=== PATIENT | female | born 1960 | race African-American/Black ===

== ENCOUNTER → 2018-06-14 | Outpatient (RCR) | payer MEDICARE | END | disposition home or self-care (01) | LOC: MKS.ESL.OT → WSST 03-17 11:15 → MKS.ESL.PT 03-22 10:00 → WSST 03-31 12:45 → MKS.ESL.OT 04-06 16:15 → WSST 04-14 12:45 → MKS.ESL.PT 04-26 15:30 → WSST 04-28 14:15 → MKS.ESL.OT 05-12 10:30 → MKS.ESL.PT 05-24 12:45 → WSST 05-26 12:45 → MKS.ESL.OT 06-07 13:30 | DX: I69.390 Apraxia following cerebral infarction (principal); I69.320 Aphasia following cerebral infarction; I69.322 Dysarthria following cerebral infarction; I69.351 Hemiplegia and hemiparesis following cerebral infarction affecting right dominant side; R56.9 Unspecified convulsions | CPT/HCPCS: G8978-GP; G8979-GP; G8984-GO; G8985-GO; G8987-GO; G9162-GN; G9163-GN ==

== ENCOUNTER 2018-09-06 12:45 | Outpatient (RCR) | payer MEDICARE | END 2018-09-14 | disposition home or self-care (01) | LOC: WSST | DX: I69.351 Hemiplegia and hemiparesis following cerebral infarction affecting right dominant side (principal); I69.328 Other speech and language deficits following cerebral infarction; I69.322 Dysarthria following cerebral infarction ==